=== PATIENT | female | born 1970 | race Caucasian/White ===

== ENCOUNTER 2022-11-06 11:48 | Inpatient (IN) | payer BC ==
--- OUTSIDE RECORDS SUMMARY | 2022-11-06 11:53 | XMS REPORT | Continuity of Care Document ---
:1970 Author Organization [facility] t Address [address] [place] [address] Care Team Providers Name Role Phone Janet Amaral Primary Care Physician LINDA LARA Attending Clinician Unavailable POLO AZEVEDO Attending Clinician Unavailable Polo Louis Attending Clinician Unknown, Attending Attending Clinician Unavailable Lisa Comer PA-C Attending Clinician LISA COMER Attending Clinician Unavailable Doctor Unassigned, [place] Attending Clinician Unavailable ALESSANDRO RUSS Attending Clinician Unavailable Alessandro Russ MD Attending Clinician RADIOLOGY Attending Clinician Unavailable Radiology Attending Clinician Unavailable TYRONE SALTER Attending Clinician Unavailable Tyrone Jarrett Attending Clinician Elsy Irvin RN Attending Clinician Unavailable UNKNOWN, ATTENDING Attending Clinician Unavailable Only, Ang Db Test Attending Clinician Unavailable CEE OQUENDO Attending Clinician Unavailable Singer MELENDEZ, Cee Attending Clinician TRACY SCHWARTZ Attending Clinician Unavailable Ana Luisa GUZMAN, [place] Attending Clinician Tracy Schwartz MD Attending Clinician RADHA SKINNER Attending Clinician Unavailable Provider, [facility] Attending Clinician Unavailable Radha Skinner MD Attending Clinician Galdino GUZMAN, Manjula Hart Attending Clinician Lance GUZMAN, Ladan Attending Clinician LINDA LARA Admitting Clinician Unavailable ALESSANDRO RUSS Admitting Clinician Unavailable JANET AMARAL Admitting Clinician Unavailable CEE OQUENDO Admitting Clinician Unavailable TRACY SCHWARTZ Admitting Clinician Unavailable Payers Payer Name Policy Type Policy Number Effective Date Expiration Date S ource HIM BCBS BLUE [id number] 2021 ADVANTAGE HMO 00:00:00 [place] [id number] 2014 00:00:00 [facility] [id number] 2020 TOTAL VISION 00:00:00 Problems Condition Condition Condition Status Onset Resolution Last Treating Co mments Source Name Details Category Date Date Treatment Clinician Date No known No known Disease Unive rs active active ity of problems problems [facility] [place] Allergies, Adverse Reactions, Alerts Allergy Allergy Status Severity Reaction(s) Onset Inactive Treating Comm ents Source Name Type Date Date Clinician Cephalos Propensi Active Rash 0 Univer s porins ty to 3-16 ity of adverse 00:00: [place] reaction 00 Medical s Branch CEPHALOS Drug Active Rash Univers PORINS Class 3-16 ity of 00:00: [place] 00 Medical Branch Cephalos Propensi Active Rash 0 Univer s porins ty to 3-16 ity of adverse 00:00: [place] reaction 00 Medical s Branch Cephalos Propensi Active Rash 0 Univer s porins ty to 3-16 ity of adverse 00:00: [place] reaction Medical s [place] Social History Social Habit Start Date Stop Date Quantity Comments Source History of tobacco Cigarette Smoker [facility] Medical Branch Gender identity Universit y of [facility] [place] Sexual orientation Univer sity of [facility] [place] Alcohol intake 2022-11-04 2022-11-04 Current drinker Unive rsity of 00:00:00 00:00:00 of alcohol [facility] (finding) [place] History of Social 2022-11-04 2022-11-04 Univers ity of function 00:00:00 00:00:00 [facility] [place] Exposure to 2022-09-02 2022-09-12 Not sure [facility] SARS-CoV-2 (event) 00:00:00 19:57:00 [facility] [place] Tobacco use and 2021-02-27 2021-02-27 Smokeless Universit y of exposure 00:00:00 00:00:00 tobacco non-user [facility] dical [place] Sex Ass[birth year] At [birth year] Universit y of 00:00:00 00:00:00 [facility] [place] Smoking Status Start Date Stop Date Source Smokes tobacco daily 2021-02-27 00:00:00 [facility] ity [facility] Medications Ordered Filled Start Stop Current Ordering Indication Dosage Frequency Signature Comments Components Source Medication Medication Date Date Medication? Clinician (SIG) Name Name amoxicillin 2022- Yes [id number] 1{tbl} Take 1 Univers -clavulanat 11-04 [id number] tablet by ity of e 00:00: 04:59 mouth in [place] (AUGMENTIN) 00 :00 the Medical 875-125 mg morning Branch per tablet and 1 tablet in the evening. Do all this for 10 days. acetaminoph 2022- Yes [id number] 1{tbl} Take 1 U nivers en-codeine 11-04 tablet by ity of (TYLENOL-CO 00:00[place] 04:59 [place] DE[place] #3[place] 00 :00 every 6 Medical 300-30 mg (six) Branch tablet hours as needed for Pain (scale 7-10) for up to 5 days. Indication s: acute pain dexamethaso 2022- No [id number] 10mg Univers ne sod phos 5-20 05-20 ity of PF 02:00: 01:22 [place] injection 00 :00 Medical 10 mg Branch albuterol 2022- No [id number] 2.5mg U nivers (PROVENTIL) - 05-20 ity of 2.5 mg /3 02:00: 01:22 [place] mL (0.083 00 :00 Medical %) Branch nebulizer solution 2.5 mg albuterol 2022- No [id number] 2.5mg 2.5 mg, Univers (PROVENTIL) - 05-20 Inhalation i ty of 2.5 mg /3 02:00: 01:22 [place] (0.083 00 :00 dose, On Medica l %) [facility] Branch nebulizer 09/12/22 at solution 2100, 2.5 mg Routine dexamethaso 2022- No [id number] 10mg 10 mg, Univers ne sod phos -13 09-20 Intramuscu i ty of PF 02:00: 01:22 lar, ONCE, [place] injection 00 :00 1 dose, On Medi esme 10 mg Fri Branch 09/12/22 at 2100, 1 mL LORazepam 2022-0 Yes .5mg Take 1 Univer s 0.5 mg 5-19 tablet by ity of tablet 20:02: mouth 2 [place] [address] (two) Medical times Branch daily as needed. Fenofibrate 2022-0 Yes Take by Uni vers 160 mg 5-19 mouth. ity of tablet 20:02: [address] Branch LORazepam 2022-0 Yes .5mg Take 1 Univer s 0.5 mg 5-19 tablet by ity of tablet 20:02: mouth 2 [place] [address] (two) Medical times Branch daily as needed. Fenofibrate 2022-0 Yes Take by Uni vers 160 mg 5-19 mouth. ity of tablet 20:02: [address] amoxicillin 3-0 Yes [id number] 1{tbl} Take 1 Univers -clavulanat 5-19 tablet by ity of e 00:00: mouth in [place] (AUGMENTIN) 00 [facility] Medical 875-125 mg morning Branch per tablet and 1 tablet in the evening. albuterol 2022-0 Yes [id number] 2{puff} Inhale 2 Univers 90 5-19 Puffs ity of mcg/actuati 00:00: every 4 [place] on inhaler 00 (four) Medical hours as Branch needed for Wheezing or Shortness of Breath. Guaifenesin 2023-0 Yes [id number] 1200mg Take 1 Univers 1,200 mg 5-19 tablet by ity of tablet 00:00: mouth in [place] 00 the Medical morning Branch and 1 tablet in the evening. amoxicillin 3-0 Yes [id number] 1{tbl} Take 1 Univers -clavulanat 5-19 tablet by ity of e 00:00: mouth in [place] (AUGMENTIN) 00 [facility] 875-125 mg morning Branch per tablet and 1 tablet in the evening. albuterol 3-0 Yes [id number] 2{puff} Inhale 2 Univers 90 5-19 Puffs ity of mcg/actuati 00:00: every 4 [place] on inhaler 00 (four) Medical hours as Branch needed for Wheezing or Shortness of Breath. Guaifenesin 3-0 Yes [id number] 1200mg Take 1 Univers 1,200 mg 5-19 tablet by ity of tablet 00:00: mouth in [place] 00 the Medical morning Branch and 1 tablet in the evening. pantoprazol 2022-0 Yes 40mg Take 40 mg Univers e 40 mg EC 4-08 by mouth ity o f tablet 08:45: daily. [address] LORazepam 2022-0 Yes .5mg Take 0.5 Univ ers 0.5 mg 4-08 mg by ity of tablet 08:45: mouth 2 [place] [address] (two) Medical times [place] daily as needed. Fenofibrate 2022-0 Yes Take by Uni vers 160 mg 4-08 mouth. ity of tablet 08:45: [address] pantoprazol 2022-0 Yes 40mg Take 40 mg Univers e 40 mg EC 4-08 by mouth ity o f tablet 08:45: daily. [address] LORazepam 2022-0 Yes .5mg Take 0.5 Univ ers 0.5 mg 4-08 mg by ity of tablet 08:45: mouth 2 [place] [address] (two) Medical times [place] daily as needed. Fenofibrate 2022-0 Yes Take by Uni vers 160 mg 4-08 mouth. ity of tablet 08:45: [address] pantoprazol 2022-0 Yes 40mg Take 40 mg Univers e 40 mg EC 4-08 by mouth ity o f tablet 08:45: daily. [address] LORazepam 2022-0 Yes .5mg Take 0.5 Univ ers 0.5 mg 4-08 mg by ity of tablet 08:45: mouth 2 [place] [address] (two) Medical times Branch daily as needed. Fenofibrate 2021-0 Yes Take by Uni vers 160 mg 4-08 mouth. ity of tablet 08:45: [address] pantoprazol 2-0 Yes 40mg Take 40 mg Univers e 40 mg EC 4-08 by mouth ity o f tablet 08:45: daily. [address] pantoprazol 2-0 Yes 40mg Take 40 mg Univers e 40 mg EC 4-08 by mouth ity o f tablet 08:45: daily. [address] metoprolol 2-0 Yes [id number] 25mg Take 1 Un renny tartrate 25 4-08 tablet by ity of mg tablet 00:00: mouth 2 [place] (two) Medical times Branch daily. metoprolol 2-0 Yes [id number] 25mg Take 1 Un renny tartrate 25 4-08 tablet by ity of mg tablet 00:00: mouth 2 [place] (two) Medical times Branch daily. metoprolol 2-0 Yes [id number] 25mg Take 1 Un renny tartrate 25 4-08 tablet by ity of mg tablet 00:00: mouth 2 [place] (two) Medical times Branch daily. metoprolol 2-0 Yes [id number] 25mg Take 1 Un renny tartrate 25 4-08 tablet by ity of mg tablet 00:00: mouth 2 [place] (two) Medical times Branch daily. metoprolol 2022-0 Yes [id number] 25mg Take 1 Un renny tartrate 25 4-08 tablet by ity of mg tablet 00:00: mouth 2 [place] (two) Medical times Branch daily. methocarbam 2-0 Yes [id number] 500mg Take 1 Univers oL 500 mg 2-01 tablet by ity o f tablet 00:00: mouth 4 [place] (four) Medical times Branch daily as needed for Pain (scale 4-6). naproxen 2022-0 Yes [id number] 500mg Take 1 Un renny (NAPROSYN) 2-01 tablet by ity of 500 mg 00:00: mouth 2 [place] tablet 00 (two) Medical times Branch daily with meals. methocarbam 2022-0 Yes [id number] 500mg Take 1 Univers oL 500 mg 2-01 tablet by ity o f tablet 00:00: mouth 4 (four) Medical times Branch daily as needed for Pain (scale 4-6). naproxen 2022-0 Yes [id number] 500mg Take 1 Un renny (NAPROSYN) 2-01 tablet by ity of 500 mg 00:00: mouth 2 [place] tablet 00 (two) Medical times Branch daily with meals. methocarbam 2022-0 Yes [id number] 500mg Take 1 Univers oL 500 mg 2-01 tablet by ity o f tablet 00:00: mouth 4 (four) Medical times Branch daily as needed for Pain (scale 4-6). naproxen 2022-0 Yes [id number] 500mg Take 1 Un renny (NAPROSYN) 2-01 tablet by ity of 500 mg 00:00: mouth 2 [place] tablet 00 (two) Medical times Branch daily with meals. methocarbam 2022-0 Yes [id number] 500mg Take 1 Univers oL 500 mg 2-01 tablet by ity o f tablet 00:00: mouth 4 (four) Medical times Branch daily as needed for Pain (scale 4-6). naproxen 2022-0 Yes [id number] 500mg Take 1 Un renny (NAPROSYN) 2-01 tablet by ity of 500 mg 00:00: mouth 2 [place] tablet 00 (two) Medical times Branch daily with meals. methocarbam 2022-0 Yes [id number] 500mg Take 1 Univers oL 500 mg 2-01 tablet by ity o f tablet 00:00: mouth (four) Medical times Branch daily as needed for Pain (scale 4-6). naproxen 2022-0 Yes [id number] 500mg Take 1 Un renny (NAPROSYN) 2-01 tablet by ity of 500 mg 00:00: mouth 2 [place] tablet 00 (two) Medical times Branch daily with meals. methocarbam 2022-0 Yes [id number] 500mg Take 1 Univers oL 500 mg 2-01 tablet by ity o f tablet 00:00: mouth 4 00 (four) Medical times Branch daily as needed for Pain (scale 4-6). naproxen 2022-0 Yes [id number] 500mg Take 1 Un renny (NAPROSYN) 2-01 tablet by ity of 500 mg 00:00: mouth 2 [place] tablet 00 (two) Medical times Branch daily with meals. chlorphenir 2020-04 Yes [id number] 4mg Take 1 Univers amine 4 mg 2-27 tablet by ity of tablet 00:00: mouth [place] 00 every 6 Medical (six) Branch hours as needed for Allergies or Runny nose. calcium/mag 2020-04 Yes [id number] 1{each} Take 1 Univers nesium/zinc 2-27 Each by ity o f (CALCIUM-MA 00:00: mouth [place] GNESUIUM-ZI 00 daily. Medica l NC) Branch 333-133-5 mg Tab benzonatate 2020-04 Yes [id number] 100mg Take 1 Univers 100 mg 2-27 capsule by ity of capsule 00:00: mouth 3 [place] 00 (three) Medical times Branch daily as needed for Cough. chlorphenir 2020-04 Yes [id number] 4mg Take 1 Univers amine 4 mg 2-27 tablet by ity of tablet 00:00: mouth [place] 00 every 6 Medical (six) Branch hours as needed for Allergies or Runny nose. calcium/mag 2020-04 Yes [id number] 1{each} Take 1 Univers nesium/zinc 2-27 Each by ity o f (CALCIUM-MA 00:00: mouth [place] GNESUIUM-ZI 00 daily. Medica l NC) Branch 333-133-5 mg Tab benzonatate 2020-04 Yes [id number] 100mg Take 1 Univers 100 mg 2-27 capsule by ity of capsule 00:00: mouth 3 [place] 00 (three) Medical times Branch daily as needed for Cough. chlorphenir 2020-04 Yes [id number] 4mg Take 1 Univers amine 4 mg 2-27 tablet by ity of tablet 00:00: mouth [place] 00 every 6 Medical (six) Branch hours as needed for Allergies or Runny nose. calcium/mag 2020-04 Yes [id number] 1{each} Take 1 Univers nesium/zinc 2-27 Each by ity o f (CALCIUM-MA 00:00: mouth [place] GNESUIUM-ZI 00 daily. Medica l NC) Branch 333-133-5 mg Tab benzonatate 2020-04 Yes [id number] 100mg Take 1 Univers 100 mg 2-27 capsule by ity of capsule 00:00: mouth 3 [place] (three) Medical times Branch daily as needed for Cough. chlorphenir 2020-04 Yes [id number] 4mg Take 1 Univers amine 4 mg 2-27 tablet by ity of tablet 00:00: mouth [place] 00 every 6 Medical (six) Branch hours as needed for Allergies or Runny nose. calcium/mag 2020-04 Yes [id number] 1{each} Take 1 Univers nesium/zinc 2-27 Each by ity o f (CALCIUM-MA 00:00: mouth [place] GNESUIUM-ZI 00 daily. Medica l NC) Branch 333-133-5 mg Tab benzonatate 2020-04 Yes [id number] 100mg Take 1 Univers 100 mg 2-27 capsule by ity of capsule 00:00: mouth 3 (three) Medical times Branch daily as needed for Cough. chlorphenir 2020-04 Yes [id number] 4mg Take 1 Univers amine 4 mg 2-27 tablet by ity of tablet 00:00: mouth [place] 00 every 6 Medical (six) Branch hours as needed for Allergies or Runny nose. calcium/mag 2020-04 Yes [id number] 1{each} Take 1 Univers nesium/zinc 2-27 Each by ity o f (CALCIUM-MA 00:00: mouth [place] GNESUIUM-ZI 00 daily. Medica l NC) Branch 333-133-5 mg Tab benzonatate 2020-04 Yes [id number] 100mg Take 1 Univers 100 mg 2-27 capsule by ity of capsule 00:00: mouth 3 (three) Medical times Branch daily as needed for Cough. chlorphenir 2020-04 Yes [id number] 4mg Take 1 Univers amine 4 mg 2-27 tablet by ity of tablet 00:00: mouth [place] 00 every 6 Medical (six) Branch hours as needed for Allergies or Runny nose. calcium/mag 2020-04 Yes [id number] 1{each} Take 1 Univers nesium/zinc 2-27 Each by ity o f (CALCIUM-MA 00:00: mouth [place] GNESUIUM-ZI 00 daily. Medica l NC) Branch 333-133-5 mg Tab benzonatate 2020-04 Yes [id number] 100mg Take 1 Univers 100 mg 2-27 capsule by ity of capsule 00:00: mouth 3 [place] 00 (three) Medical times Branch daily as needed for Cough. butalbital- 2020-04 Yes [id number] 1{tbl} Take 1 Univers acetaminoph 1-20 tablet by ity of en-caff 00:00: mouth [place] 50-325-40 00 every 4 Medical mg tablet (four) Branch hours as needed for Pain (scale 7-10). butalbital- 2020-04 Yes [id number] 1{tbl} Take 1 Univers acetaminoph 1-20 tablet by ity of en-caff 00:00: mouth [place] 50-325-40 00 every 4 Medical mg tablet (four) Branch hours as needed for Pain (scale 7-10). butalbital- 2020-04 Yes [id number] 1{tbl} Take 1 Univers acetaminoph 1-20 tablet by ity of en-caff 00:00: mouth [place] 50-325-40 00 every 4 Medical mg tablet (four) Branch hours as needed for Pain (scale 7-10). butalbital2020-04 Yes [id number] 1{tbl} Take 1 Univers acetaminoph 1-20 tablet by ity of en-caff 00:00: mouth [place] 50-325-40 00 every 4 Medical mg tablet (four) Branch hours as needed for Pain (scale 7-10). butalbital2020-04 Yes [id number] 1{tbl} Take 1 Univers acetaminoph 1-20 tablet by ity of en-caff 00:00: mouth [place] 50-325-40 00 every 4 Medical mg tablet (four) Branch hours as needed for Pain (scale 7-10). butalbital2020-04 Yes [id number] 1{tbl} Take 1 Univers acetaminoph 1-20 tablet by ity of en-caff 00:00: mouth [place] 50-325-40 00 every 4 Medical mg tablet (four) Branch hours as needed for Pain (scale 7-10). DULoxetine 2020-04 Yes TAKE ONE Uni vers 60 mg 0-26 (1) ity of capsule 00:00: CAP[place]LE [place] 00 MOUTH ONCE Medical DAILY. Branch DULoxetine 2020-04 Yes TAKE ONE Uni vers 60 mg 0-26 (1) ity of capsule 00:00: CAPSULE [place] 00 MOUTH ONCE Medical DAILY. Branch DULoxetine 2020-04 Yes TAKE ONE Uni vers 60 mg 0-26 (1) ity of capsule 00:00: CAPSULE [place] 00 MOUTH ONCE Medical DAILY. Branch DULoxetine 2020-04 Yes TAKE ONE Uni vers 60 mg 0-26 (1) ity of capsule 00:00: CAPSULE BY [place] 00 MOUTH ONCE Medical DAILY. Branch DULoxetine 2020-04 Yes TAKE ONE Uni vers 60 mg 0-26 (1) ity of capsule 00:00: CAPSULE BY [place] 00 MOUTH ONCE Medical DAILY. Branch DULoxetine 2020-04 Yes TAKE ONE Uni vers 60 mg 0-26 (1) ity of capsule 00:00: CAPSULE [place] 00 MOUTH ONCE Medical DAILY. Branch albuterol Yes [id number] 2{puff} Inhale 2 Univers 90 9-04 Puffs ity of mcg/actuati 00:00: every 4 [place] on inhaler 00 (four) Medical hours as Branch needed for Wheezing or Shortness of Breath. methylPREDN Yes [id number] Take by Univers ISolone 9-04 mouth ity of (MEDROL, 00:00: SEE-INSTRU [place] as OLYA,) 4 mg 00 CTIONS. Medica l tablets follow Branch package directions azithromyci Yes [id number] 250mg Take 1 Univers n 250 mg 9-04 tablet by ity of tablet 00:00: mouth [place] 00 daily. Medical Take 500 Branch mg day 1, then 250 mg days 2 to 5. albuterol Yes [id number] 2{puff} Inhale 2 Univers 90 9-04 Puffs ity of mcg/actuati 00:00: every 4 [place] on inhaler 00 (four) Medical hours as Branch needed for Wheezing or Shortness of Breath. methylPREDN Yes [id number] Take by Univers ISolone 9-04 mouth ity of (MEDROL, 00:00: SEE-INSTRU [place] OLYA,) 4 mg 00 CTIONS. Medica l tablets follow Branch package directions azithromyci Yes [id number] 250mg Take 1 Univers n 250 mg 9-04 tablet by ity of tablet 00:00: mouth [place] 00 daily. Medical Take 500 Branch mg day 1, then 250 mg days 2 to 5. albuterol 2020-0 Yes [id number] 2{puff} Inhale 2 Univers 90 9-04 Puffs ity of mcg/actuati 00:00: every 4 [place] on inhaler 00 (four) Medical hours as Branch needed for Wheezing or Shortness of Breath. methylPREDN 2020-0 Yes [id number] Take by Univers ISolone 9-04 mouth ity of (MEDROL, 00:00: SEE-INSTRU [place] as OLYA,) 4 mg 00 CTIONS. Medica l tablets follow Branch package directions azithromyci 2020-0 Yes [id number] 250mg Take 1 Univers n 250 mg 9-04 tablet by ity of tablet 00:00: mouth [place] 00 daily. Medical Take 500 Branch mg day 1, then 250 mg days 2 to 5. albuterol 2020-0 Yes [id number] 2{puff} Inhale 2 Univers 90 9-04 Puffs ity of mcg/actuati 00:00: every 4 [place] on inhaler 00 (four) Medical hours as Branch needed for Wheezing or Shortness of Breath. methylPREDN 2020-0 Yes [id number] Take by Univers ISolone 9-04 mouth ity of (MEDROL, 00:00: SEE-INSTRU [place] as OLYA,) 4 mg 00 CTIONS. Medica l tablets follow Branch package directions azithromyci 2020-0 Yes [id number] 250mg Take 1 Univers n 250 mg 9-04 tablet by ity of tablet 00:00: mouth [place] 00 daily. Medical Take 500 Branch mg day 1, then 250 mg days 2 to 5. methylPREDN 2020-0 Yes [id number] Take by Univers ISolone 9-04 mouth ity of (MEDROL, 00:00: SEE-INSTRU [place] as OLYA,) 4 mg 00 CTIONS. Medica l tablets follow Branch package directions azithromyci 2020-0 Yes [id number] 250mg Take 1 Univers n 250 mg 9-04 tablet by ity of tablet 00:00: mouth [place] 00 daily. Medical Take 500 Branch mg day 1, then 250 mg days 2 to 5. methylPREDN 2020-0 Yes [id number] Take by Univers ISolone 9-04 mouth ity of (MEDROL, 00:00: SEE-INSTRU [place] OLYA,) 4 mg 00 CTIONS. Medica l tablets follow Branch package directions azithromyci Yes [id number] 250mg Take 1 Univers n 250 mg 9- tablet by ity of tablet 00:00: mouth daily. Medical Take 500 Branch mg day 1, then 250 mg days 2 to 5. albuterol 3- No [id number] 2{puff} Inhale 2 Univers 90 904 05-19 Puffs ity of mcg/actuati 00:00: 00:00 every 4 [place] inhaler 00 :00 (four) Medical hours as Branch needed for Wheezing or Shortness of Breath. levothyroxi Yes 112ug Take 112 U nivers ne 112 mcg 8-16 mcg by ity of tablet 00:00: mouth. [facility] Branch levothyroxi Yes 112ug Take 112 U nivers ne 112 mcg 8-16 mcg by ity of tablet 00:00: mouth. [facility] levothyroxi Yes 112ug Take 112 U nivers ne 112 mcg 8-16 mcg by ity of tablet 00:00: mouth. [facility] Branch levothyroxi Yes 112ug Take 112 U nivers ne 112 mcg 8-16 mcg by ity of tablet 00:00: mouth. [facility] levothyroxi Yes 112ug Take 112 U nivers ne 112 mcg 8-16 mcg by ity of tablet 00:00: mouth. [facility] levothyroxi Yes 112ug Take 112 U nivers ne 112 mcg 8-16 mcg by ity of tablet 00:00: mouth. [facility] Branch ibuprofen Yes [id number] 600mg Take 1 Univers 600 mg 3-16 [id number] tablet by ity of tablet 00:00: mouth every 8 Medical (eight) Branch hours as needed for Pain (scale 4-6). ibuprofen Yes [id number] 600mg Take 1 Univers 600 mg 3-16 [id number] tablet by ity of tablet 00:00: mouth every 8 Medical (eight) Branch hours as needed for Pain (scale 4-6). ibuprofen Yes [id number] 600mg Take 1 Univers 600 mg 3-16 [id number] tablet by ity of tablet 00:00: mouth [place] 00 every 8 Medical (eight) Branch hours as needed for Pain (scale 4-6). ibuprofen Yes [id number] 600mg Take 1 Univers 600 mg 3-16 [id number] tablet by ity of tablet 00:00: mouth [place] 00 every 8 Medical (eight) Branch hours as needed for Pain (scale 4-6). ibuprofen 0 Yes [id number] 600mg Take 1 Univers 600 mg 3-16 [id number] tablet by ity of tablet 00:00: mouth [place] 00 every 8 Medical (eight) Branch hours as needed for Pain (scale 4-6). ibuprofen 0 Yes [id number] 600mg Take 1 Univers 600 mg 3-16 [id number] tablet by ity of tablet 00:00: mouth [place] 00 every 8 Medical (eight) Branch hours as needed for Pain (scale 4-6). Immunizations Ordered Filled Immunization Date Status Comments [facility] e Immunization Name Name TDAP 2022-11-04 Completed [facility] 00:00:00 [facility] [place] Vital Signs Vital Name Observation Time Observation Value Comments Source Systolic blood 2022-11-04 21:54:00 143 mm[Hg] [facility] 2022-11-04 21:54:00 94 mm[Hg] Unive [facility] Heart rate 2022-11-04 21:53:00 97 /min [facility] Body temperature 2022-11-04 21:53:00 36.61 Sanam [facility] Respiratory rate 2022-11-04 21:53:00 16 /min [facility] Body weight 2022-11-04 21:53:[address] [facility] BMI 2022-11-04 21:53:00 33.30 kg/m2 [facility] Oxygen saturation in 2022-11-04 21:53:00 97 /min [facility] Arterial blood by [facility] Pulse oximetry [place] Systolic blood 2022-09-13 01:00:00 126 mm[Hg] Univer sity [facility] Diastolic blood 2022-09-13 01:00:00 76 mm[Hg] Unive rsity [facility] Heart rate 2022-09-13 01:00:00 110 /min [facility] [place] [facility] Body temperature 2022-09-13 01:00:00 36.33 [facility] [place] Respiratory rate 2022-09-13 01:00:00 16 /min Univ ersity of [place] [facility] Body height 2022-09-13 01:00:00 162.6 cm Universi ty of [place] [facility] [place] Body weight 2022-09-13 01:00:00 87.59 kg Universi ty [facility] [place] [facility] BMI 2022-09-13 01:00:00 33.15 kg/m2 Universi ty [facility] [place] [facility] Oxygen saturation in 2022-09-13 01:00:00 97 /min University of Arterial blood by [facility] Pulse oximetry Branch Systolic blood 2021-08-02 13:41:00 137 mm[Hg] Univer sity of [facility] Diastolic blood 2021-08-02 13:41:00 87 [facility]Hg[facility] 2021-08-02 13:41:00 92 /min [facility] [place] [facility] Body height 2021-08-02 13:41:00 162.6 cm [facility] [place] [facility] Body weight 2021-08-02 13:41:00 82.696 kg [facility] [place] [facility] BMI 2021-08-02 13:41:00 31.29 kg/m2 [facility] [place] [facility] Oxygen saturation in 2021-08-02 13:41:00 96 /min University of Arterial blood by [facility] Pulse oximetry Branch Procedures Procedure Date / Time Performed Performing Clinician Sour e TDAP VACCINE, >11 YRS, 2022-11-04 22:09:[address] [facility] ASSIGNMENT OF BENEFITS 2022-09-13 00:57:13 Doctor Unassigned, No [facility] Name [facility] EXTERNAL PROVIDER 2021-07-23 05:01:00 Doctor Unassigned, No [facility] RECORDS [facility] Medical [place] Encounters Start End Encounter Admission Attending Care Care Encounter Source Date/Time Date/Time Type Type Clinicians Facility Department ID 2021-12-05 Outpatient R FLOR [facility] [id number] [facility] 13:52:05 LINDA Armendariz [facility] 2022-11-04 2022-11-04 Outpatient R JOLLY [facility] [id number] Univers 17:00:00 17:10:48 CECILIORanjeetTomy virgen [facility] 2022-11-04 2022-11-04 Urgent Polo Azevedo [facility] 1.2.840.11 [id number] Univers 17:00:00 17:10:48 Care Unknown, Attending HEALTH [id number] ity of [place] [id number] Fransico as DAVID?BLEA [phone] [address] MEDICAL OFFICE [facility] 2022-09-12 2022-09-12 Urgent Lisa Comer [facility] [id number] Univers 20:00:00 20:20:00 Care Unknown, Attending [facility] [id number] ity of [place] [id number] Fransico as DAVID?BLEA [id number] [address] MEDICAL OFFICE [facility] 2022-09-12 2022-09-12 [facility] [id number] Univers 20:00:00 20:00:00 LISACANDIDO virgen [facility] 2022-09-12 2022-09-12 Orders Doctor MICHELLE [id number] Univers 00:00:00 00:00:00 Only Unassigned, MARTIN [id number] [facility] [id number] [place]ans[place] as [phone] [address] 2021-12-17 2021-12-17 Outpatient R FLOR [facility] [id number] Univers 08:00:00 08:00:00 LINDA Armendariz [facility] 2021-09-03 2021-09-03 Outpatient R JEB [facility] [id number] Univers 08:00:00 08:00:00 ALESSANDRO hart [facility] 2021-09-02 2021-09-02 Outpatient R JEB [facility] [id number] Univers 10:20:00 10:20:00 QIANGJUN ity o [facility] 2021-09-02 2021-09-02 Outpatient R JEB, [facility] [id number] Univers 10:20:00 10:20:00 ALESSANDRO kasper [facility] 2021-08-15 2021-08-15 Telephone Jeb, [facility] [id number] Univers 00:00:00 00:00:00 Alessandro TURNER [id number] ity [facility] [id number] [phone] [address] 2021-08-13 2021-08-13 Outpatient R JEB, [facility] [id number] Univers 15:00:00 23:59:00 ALESSANDRO kasper [facility] 2021-08-12 2021-08-12 Outpatient R JEB, [facility] [id number] Univers 00:00:00 00:00:00 ALESSANDRO kasper [facility] 2021-08-02 2021-08-02 Outpatient R JEB, [facility] [id number] Univers 08:40:00 09:23:00 ALESSANDRO kasper [facility] 2021-08-02 2021-08-02 [facility] [id number] Univers 08:40:00 09:23:00 Visit Alessandro TURNER [id number] ity [facility] [id number] [phone] Wi dicva NAL [address] [place] [address] 2021-08-02 2021-08-02 Outpatient R JEB, [facility] [id number] Univers 08:40:00 09:23:00 ALESSANDRO kasper [facility] 2021-08-01 2021-08-01 Outpatient R RADIOLOGY [facility] RAD [id number] Univers 11:00:18 23:59:00 ity [facility] 2021-08-01 2021-08-01 Outpatient R RADIOLOGY [facility] RAD [id number] Univers 11:00:18 23:59:00 ity [facility] 2021-08-01 2021-08-01 Hospital Radiology [facility] 1.2.840.114 [id number] Univers 11:00:00 23:59:00 Encounter [place] [id number] ity of [place] [id number] [facility] [phone] [facility] [address] 2021-07-23 2021-07-23 Orders Doctor MICHELLE 1.2.840.114 [id number] Univers 00:00:00 00:00:00 Only Unassigned, MARTIN [id number] ity of [place] [facility] 4.2.7.2.686 Fransico as [phone] [facility] 009 Branch 2021-05-28 2021-05-28 Emergency X JOIE [facility] ERT [id number] Univers 17:05:00 20:12:00 TYRONE ity [facility] 2021-05-28 2021-05-28 Emergency Joie [facility] [id number] Univers 17:05:00 20:12:00 Tyrone S [place] [id number] i ty of [place] 4.2.7.2.686 [facility] [id number] [facility] 084 Branch 2021-05-28 2021-05-28 Orders Doctor MICHELLE 1.2.840.114 [id number] Univers 00:00:00 00:00:00 Only Unassigned, MARTIN [id number] ity of [place] [facility]OSPITAL 4.2.7.2.686 Fransico as [id number] [facility] 009 [place] 2021-05-01 2021-05-01 Telephone Elsy Irvin 1.2.840.114 [id number] Univers 00:00:00 00:00:00 MARTIN [id number] it y of HOSPITAL 4.2.7.2.686 [place] as [phone] [facility] 019 Branch 2021-04-30 2021-04-30 Outpatient R UNKNOWN, [facility] [id number] Univers 09:15:00 09:39:56 ATTENDING ity [facility] 2021-04-30 2021-04-30 Laboratory Only, Ang Db Test [facility] 1.2.8 [id number] Univers 09:15:00 09:30:00 Only Unknown, Attending HEALTH [id number] ity of [place] 4.2.7.2.686 [place]ans[place] as DAVID?BLEA [phone] [address] MEDICAL OFFICE BUILDING 2021-04-22 2021-04-22 Emergency X SINGER [facility] ERT [id number] Univers 12:51:00 15:37:00 CEE virgen [facility] 2021-04-22 2021-04-22 Emergency [facility] [id number] Univers 12:51:00 15:37:00 Cee SAENZVITO 350.1.13.10 i ty [facility] 4.2.7.2.686 [facility] [phone] [address] 2021-03-15 2021-03-16 Emergency X EFREN [facility] ERT [id number] Univers 21:11:00 02:13:00 TRACY virgen [facility] 2021-03-15 2021-03-16 Emergency Ana LuisaJuan C armendar[place] [facility] 1..840.11 [id number] Univers 21:11:00 02:13:00 Efren Tracy Vicki YUE 350.1.13.10 ity [facility] [id number] [facility] [id number] [address] 2021-02-27 2021-02-27 Outpatient Seth SKINNER [facility] [id number] Univers 18:40:00 18:39:28 RADHA virgen [facility] 2021-02-27 2021-02-27 Urgent Provider, [facility] 1.2.840.114 [id number] Univers 18:23:01 18:39:28 Radha Das [id number] ity of [place] [id number] [place]ans[place] as DAVID?BLEA [phone] [address] MEDICAL OFFICE [facility] 2020-12-29 2020-12-29 Emergency Galdino [facility] 1.2.840.114 [id number] Univers 10:05:00 14:10:00 Manjula Turner [id number] ity [facility] [id number] [facility] [phone] [place] 766464 Branch 2020-12-29 2020-12-29 Emergency X [facility] ERT [id number] Univers 09:56:00 09:56:00 ity [facility] 2020-07-10 2020-07-10 Emergency [facility] 1.2.840.114 [id number] Univers 12:55:00 16:00:00 Ladan Turner 350.1.13.10 i ty [facility] [id number] [facility] [phone] [place] 766464 Branch 2020-07-10 2020-07-10 Emergency X [facility] ERT [id number] Univers 12:43:00 12:43:00 [facility] This patient has no known results.
--- NOTE | 2022-11-06 13:05 | EDPHYS ---
Physician Documentation [facility] Name: Lauren Reddy Age: 52 yrs Sex: Female : 1970 Arrival Date: 11/06/2022 Time: 11:48 Bed 5 Private MD: Man Amaral E ED Physician Matheus Cooper HPI: 11/06 12:39 This 52 yrs old Female presents to ER via Ambulatory with complaints of Hand Swelling, snw Cat Bite - scratch. 12:39 The patient or guardian reports a bite, cat. The complaints affect the left dorsal snw hand. Context: The problem was sustained at home, resulted from cat bite. Onset: The symptoms/episode began/occurred suddenly, 80 hour(s) ago, and became worse. Associated signs and symptoms: Pertinent positives: redness and edema over dorsal left hand. The patient has not experienced similar symptoms in the past. The patient has been recently seen by a physician: The patient has been recently seen at an urgent care, for similar complaints, was given a prescription for antibiotics. Historical: - Allergies: 12:06 CEPHALOSPORINS; ll1 - PMHx: 12:06 Hypothyroidism; GERD; ll1 - PSHx: 12:06 None; ll1 - Immunization history:: Client reports receiving the 2nd dose of the Covid vaccine. - Social history:: Smoking status: Patient reports the use of cigarette tobacco products, denies chronic smoking, but will smoke occasionally. ROS: 12:38 Constitutional: Negative for fever, chills, and weight loss, Eyes: Negative for injury, snw pain, redness, and discharge, ENT: Negative for injury, pain, and discharge, Neck: Negative for injury, pain, and swelling, Cardiovascular: Negative for chest pain, palpitations, and edema, Respiratory: Negative for shortness of breath, cough, wheezing, and pleuritic chest pain, Abdomen/GI: Negative for abdominal pain, nausea, vomiting, diarrhea, and constipation, Back: Negative for injury and pain, : Negative for injury, bleeding, discharge, and swelling, MS/Extremity: Negative for injury and deformity, Neuro: Negative for headache, weakness, numbness, tingling, and seizure, Psych: Negative for depression, anxiety, suicide ideation, homicidal ideation, and hallucinations. 12:38 Skin: Positive for cat bite. Exam: 12:38 Constitutional: This is a well developed, well nourished patient who is awake, alert, snw and in no acute distress. Head/Face: Normocephalic, atraumatic. Eyes: Pupils equal round and reactive to light, extra-ocular motions intact. Lids and lashes normal. Conjunctiva and sclera are non-icteric and not injected. Cornea within normal limits. Periorbital areas with no swelling, redness, or edema. ENT: Nares patent. No nasal discharge, no septal abnormalities noted. Tympanic membranes are normal and external auditory canals are clear. Oropharynx with no redness, swelling, or masses, exudates, or evidence of obstruction, uvula midline. Mucous membranes moist. Neck: Trachea midline, no thyromegaly or masses palpated, and no cervical lymphadenopathy. Supple, full range of motion without nuchal rigidity, or vertebral point tenderness. No Meningismus. Chest/axilla: Normal chest wall appearance and motion. Nontender with no deformity. No lesions are appreciated. Cardiovascular: Regular rate and rhythm with a normal S1 and S2. No gallops, murmurs, or rubs. Normal PMI, no JVD. No pulse deficits. Respiratory: Lungs have equal breath sounds bilaterally, clear to auscultation and percussion. No rales, rhonchi or wheezes noted. No increased work of breathing, no retractions or nasal flaring. Abdomen/GI: Soft, non-tender, with normal bowel sounds. No distension or tympany. No guarding or rebound. No evidence of tenderness throughout. Back: No spinal tenderness. No costovertebral tenderness. Full range of motion. MS/ Extremity: Pulses equal, no cyanosis. Neurovascular intact. Full, normal range of motion. Neuro: Awake and alert, GCS 15, oriented to person, place, time, and situation. Cranial nerves II-XII grossly intact. Motor strength 5/5 in all extremities. Sensory grossly intact. Cerebellar exam normal. Normal gait. Psych: Awake, alert, with orientation to person, place and time. Behavior, mood, and affect are within normal limits. 12:38 Skin: Appearance: normal except for affected area, injury, bite(s), puncture, vaccinated personal cat bite. Vital Signs: 12:04 BP 141 / 106; Pulse 79; Resp 16; Temp 98.4(O); Pulse Ox 100% on R/A; Weight 89.36 kg; ll1 Height 5 ft. 4 in. ; Pain 10/10; 13:08 BP 139 / 85; Pulse 82; Resp 18; Pulse Ox 97% on R/A; ph 12:04 Body Mass Index 33.81 (89.36 kg, 162.56 cm) ll1 12:04 Pain Scale: Adult ll1 MDM: 12:12 Patient medically screened. snw 12:44 Differential diagnosis: cellulitis. Data reviewed: vital signs, nurses notes, snw radiologic studies, plain films. Management of patient was discussed with the following: Strategic Marketing Leader: Dr. Leo. Spoke with Dr. Leo, he will take to OR today. . Counseling: I had a detailed discussion with the patient and/or guardian regarding: the historical points, exam findings, and any diagnostic results supporting the discharge/admit diagnosis, the need for further work-up and treatment in the hospital. Response to treatment: There is no appreciated change of the patient's symptoms at this time. 13:03 Management of patient was discussed with the following: Hospitalist: Dr. Bone. sn11/06 12:21 Order name: CBC with Diff; Complete Time: 13:24 11/06 12:21 Order name: Chem 7; Complete Time: 13:24 sn11/06 12:21 Order name: Procalcitonin; Complete Time: 13:54 11/06 12:21 Order name: CPK; Complete Time: 13:24 sn11/06 13:05 Order name: PREGU 11/06 12:21 Order name: Hand Left 3 View XRAY; Complete Time: 13:17 11/06 13:05 Order name: Chest Single View XRAY; Complete Time: 13:15 snw 11/06 12:51 Order name: EKG; Complete Time: 12:52 sn11/06 12:21 Order name: Misc. Order: ice to left index finger for ring removal assist; Complete snw Time: 13:23 11/06 12:51 Order name: NPO; Complete Time: 13:22 snw 11/06 12:51 Order name: EKG - Nurse/Tech; Complete Time: 13:22 snw EC:10 Rate is 71 beats/min. Rhythm is regular. Right axis deviation noted. QT interval is snw prolonged. Clinical impression: NSR w/ Non-specific ST/T Changes. Administered Medications: 13:15 Drug: NS 0.9% IV 1000 ml Route: IV; Rate: 125 ml/hr; Site: right antecubital; iw 14:30 Follow up: IV Status: Infusion continued upon admission ph 13:15 Drug: Ampicillin-Sulbactam Sodium IVPB 1.5 grams Route: IVPB; Infused Over: 30 mins; iw Site: right antecubital; 13:45 Follow up: Response: No adverse reaction; IV Status: Completed infusion ph Disposition: 20:31 Co-signature as Attending Physician, Matheus Cooper MD I reviewed the patient's care rt provided by the Advanced Practice Provider and agree with the diagnosis and treatment plan. Disposition Summary: 11/06/22 13:05 Hospitalization Ordered Hospitalization Status: Observation snw Provider: Job Bone snw Location: Telemetry/MedSurg (observation) snw Condition: Stable snw Problem: new snw Symptoms: have worsened snw Bed/Room Type: Standard snw Room Assignment: snw Diagnosis - Bitten by cat snw - Puncture wound without foreign body of left hand snw - Cellulitis, unspecified - failed outpatient therapy snw Forms: - Medication Reconciliation Form snw - SBAR form snw Signatures: Dispatcher [employer] Hanane Pagan FNP-C CENTRIFUGAL SEPARATOR-Csnw Mechelle Guillaume RN RN iw Matt Sharp RN RN ll1 Matheus Cooper MD MD rt Lin Anderson RN ph Corrections: (The following items were deleted from the chart) 12:48 12:44 Management of patient was discussed with the following: Strategic Marketing Leader: Dr. juan r Leo. snw
--- NOTE | 2022-11-06 13:05 | ER ---
Nurse's Notes [facility] Name: Lauren Reddy Age: 52 yrs Sex: Female : 1970 Arrival Date: 11/06/2022 Time: 11:48 Bed 5 Private MD: Man Amaral E Diagnosis: Bitten by cat;Puncture wound without foreign body of left hand;Cellulitis, unspecified-failed outpatient therapy Presentation: 11/06 12:04 Chief complaint: Patient states: Her cat bit her Thursday. [facility] to [facility] and started Augmentin Thursday night. L hand is painful, swollen, red, hit now. Coronavirus screen: Vaccine status: Patient reports receiving the 2nd dose of the covid vaccine. Client denies travel out of the [place] in the last 14 days. At this time, the client does not indicate any symptoms associated with coronavirus-19. Ebola Screen: Patient denies travel to an Ebola-affected area in the 21 days before illness onset. Initial Sepsis Screen: Does the patient meet any 2 criteria? No. Patient's initial sepsis screen is negative. Does the patient have a suspected source of infection? Yes: Skin breakdown/wound. Risk Assessment: Do you want to hurt yourself or someone else? Patient reports no desire to harm self or others. Onset of symptoms was November 04, 2022. 12:04 Method Of Arrival: [facility]ulatory [facility] 12:04 Acuity: CHEMO 3 ll1 Triage Assessment: 12:06 Bite description: bite sustained to left hand by a cat, animal information: Appearance: ll1 appeared well, vaccination(s) is current. General: Appears uncomfortable, Behavior is calm, cooperative, appropriate for age. Pain: Complains of pain in left hand Quality of pain is described as aching, throbbing. Derm: Reports cat bite L hand. Musculoskeletal: Circulation, motion, and sensation intact. Capillary refill < 3 seconds, Swelling present in left hand. Historical: - Allergies: 12:06 CEPHALOSPORINS; ll1 - PMHx: 12:06 Hypothyroidism; GERD; ll1 - PSHx: 12:06 None; ll1 - Immunization history:: Client reports receiving the 2nd dose of the Covid vaccine. - Social history:: Smoking status: Patient reports the use of cigarette tobacco products, denies chronic smoking, but will smoke occasionally. Screenin:36 [facility] ED Fall Risk Assessment (Adult) History of falling in the last 3 months, db including since admission No falls in past 3 months (0 pts) Confusion or Disorientation No (0 pts) Intoxicated or Sedated No (0 pts) Impaired Gait No (0 pts) Mobility Assist Device Used No (0 pt) Altered Elimination No (0 pt) Score/Fall Risk Level 0 - 2 = Low Risk Oriented to surroundings, Maintained a safe environment. Abuse screen: Denies threats or abuse. Denies injuries from another. Nutritional screening: No deficits noted. Tuberculosis screening: No symptoms or risk factors identified. Assessment: 12:45 Reassessment: Patient appears in no apparent distress at this time. Patient and/or db family updated on plan of care and expected duration. Pain level reassessed. Patient is alert, oriented x 3, equal unlabored respirations, skin warm/dry/pink. LEFT HAND SWELLING AND PAIN AFTER CAT SCRATCH . PT HAS BEEN WASHING DAILY WITH HYDROGEN PEROXIDE. PATIENT WITH RING ON INDEX FINGER. Vital Signs: 12:04 BP 141 / 106; Pulse 79; Resp 16; Temp 98.4(O); Pulse Ox 100% on R/A; Weight 89.36 kg; ll1 Height 5 ft. 4 in. ; Pain 10/10; 13:08 BP 139 / 85; Pulse 82; Resp 18; Pulse Ox 97% on R/A; ph 12:04 Body Mass Index 33.81 (89.36 kg, 162.56 cm) ll1 12:04 Pain Scale: Adult ll1 ED Course: 11:54 Patient arrived in ED. am2 11:55 Man Amaral MD is Private Physician. am2 11:56 Hanane Moreno FNP-C [facility]. snw 11:56 Matheus Cooper MD is Attending Physician. snw 12:06 Triage completed. ll1 12:07 Arm band placed on Patient placed in an exam room, on a stretcher. ll1 12:53 Tonja Vargas, WESTLEY is Primary Nurse. db 13:04 Job Bone MD is Hospitalizing Provider. snw 13:09 Chest Single View XRAY In Process Unspecified. EDMS 13:11 Hand Left 3 View XRAY In Process Unspecified. EDMS 13:23 RING CUT OFF OF LEFT INDEX FINGER. iw 13:38 Report received from WESTLEY Evangelista. mb9 14:29 Patient has correct armband on for positive identification. Placed in gown. Bed in low ph position. Call light in reach. Side rails up X 1. 14:30 Patient admitted, IV remains in place. ph Administered Medications: 13:15 Drug: NS 0.9% IV 1000 ml Route: IV; Rate: 125 ml/hr; Site: right antecubital; iw 14:30 Follow up: IV Status: Infusion continued upon admission ph 13:15 Drug: Ampicillin-Sulbactam Sodium IVPB 1.5 grams Route: IVPB; Infused Over: 30 mins; iw Site: right antecubital; 13:45 Follow up: Response: No adverse reaction; IV Status: Completed infusion ph Medication: 14:29 VIS not applicable for this client. ph Outcome: 13:05 Decision to Hospitalize by Provider. snw 14:29 Admitted to OR accompanied by nurse, family with patient, via wheelchair. ph 14:29 Condition: stable 14:31 Patient left the ED. ph Signatures: Dispatcher [employer] EDMS Hanane Moreno, PROBATION MANAGER-C PROBATION MANAGER-Csnw Mechelle Guillaume, WESTLEY CHRISTY Lin Anderson RN RN Chary Patel amMatt Guerra RN RN ll1 Tonja Vargas, Blank Ramsay RN RN RN mb9
[2022-11-06 13:12] LABS: Absolute Lymphocytes (CBC) 1.2 K/uL (0.7-4.9); Hematocrit 39.3 % (36.0-45.0); Lymphocytes % 19.7 % (15.3-44.8); MCV 95.3 fL (80-100); MPV 8.4 fL (7.6-11.3); RBC Red Blood Cell Count 4.12 M/uL (3.86-4.86)
[2022-11-06] MEDS ORDERED: NA CHLORIDE 0.9% 1,000 ML ONE (13:13)
[2022-11-06] MEDS ORDERED: NA CHLORIDE 0.9% 100 ML ONE (13:13)
[2022-11-06] MEDS ORDERED: AMPICILLIN/SULBACT 1.5GM VIAL ONE (13:13)
--- NOTE | 2022-11-06 13:14 | RAD REPORT ---
EXAM DESCRIPTION: RAD - Chest Single View - 11/06/2022 1:09 pm CLINICAL HISTORY: preop Chest pain. COMPARISON: No comparisons FINDINGS: Portable technique limits examination quality. The lungs are grossly clear. The heart is mildly enlarged in size. No displaced fractures. IMPRESSION: No acute intrathoracic process suspected.
--- NOTE | 2022-11-06 13:15 | RAD REPORT ---
EXAM DESCRIPTION: RAD - Hand Left 3 View - 11/06/2022 1:09 pm CLINICAL HISTORY: ANIMAL BITE COMPARISON: No comparisons FINDINGS: Significant soft tissue swelling along the medial aspect of the hand and wrist. No fractur e or radiopaque foreign body. No soft tissue gas or osteomyelitis.
[2022-11-06 13:23] LABS: Potassium 3.8 mEq/L (3.5-5.1)
[2022-11-06] MEDS ORDERED: ONDANSETRON 4 MG/2 ML VIAL IV PRN (14:40)
[2022-11-06] MEDS ORDERED: ACETAMINOPHEN 500 MG TAB PO PRN (14:40)
[2022-11-06] MEDS ORDERED: HYDROCODONE/APAP 7.5/325 MG TAB PO PRN (14:43)
[2022-11-06] MEDS ORDERED: FENTANYL CITR 100 MCG/2 ML ONE ×2 (14:47→16:37)
[2022-11-06] MEDS ORDERED: propofoL 200 MG/20 ML VIAL IV ONE (14:47)
[2022-11-06] MEDS ORDERED: MIDAZOLAM HCL 2 MG/2 ML INJ ONE (14:47)
[2022-11-06] MEDS ORDERED: ONDANSETRON 4 MG/2 ML VIAL ONE (14:48)
[2022-11-06] MEDS ORDERED: LIDOCAINE 2% MPF 5 ML VIAL ONE (14:48)
[2022-11-06] MEDS ORDERED: SILVER SULFADIAZINE 1% 25 GM TOP ONE (15:43)
[2022-11-06] MEDS ORDERED: dexAMETHasone 10 MG/ML VIAL ONE (15:50)
[2022-11-06] MEDS: HYDROMORPHONE HCL 2 MG/ML inj ONE ×4 (15:57→16:16)
[2022-11-06] MEDS ORDERED: PIPER TAZO 3.375 GM in NA CHLORIDE 0.9% 100 ML IV SCH (17:00)
[2022-11-06 17:40] VITALS: BMI 33.7
[2022-11-06] MEDS: NA CHLORIDE 0.9% 1,000 ML IV SCH (17:44)
[2022-11-06] MEDS ORDERED: NA CHLORIDE IV SCH (18:00)
[2022-11-06] MEDS ORDERED: PENICILLIN MU IV SCH (18:00)
[2022-11-06] MEDS: PENICILLIN MU IV SCH (18:10)
[2022-11-06] MEDS: NA CHLORIDE IV SCH (18:10)
--- NOTE | 2022-11-06 21:50 | P.HP ---
Certification for Inpatient Patient admitted to: Inpatient Patient will require the following post-hospital care: Home Health Services Practitioner: I am a practitioner with admitting privileges, knowledge of patient current condition, hospital course, and medical plan of care. Services: Services provided to patient in accordance with Admission requirements found in Title 42 Section 412.3 of the Code of Federal Regulations Patient History Date of Service: 11/06/22 Reason for admission: Cellulitis of the left hand. History of Present Illness: Patient is a 52-year-old female who came to the hospital with pain and swelling in the left hand. She apparently has suffered a cat bite a couple of days ago and the swelling has gotten worse. She has a significant amount of redness and edema over the left hand. Patient was given oral antibiotics. Patient clinical symptoms are worsening. Patient decided to come into the emergency room for further evaluation. In the emergency room patient was evaluated and labs were performed. Patient had significant cellulitis and what appears to be an abscess. Patient will be seen by hand surgery for further evaluation. Allergies Cephalosporins Adverse Reaction (Verified 11/06/22 14:40) Nausea/Vomiting Home Medications: Levothyroxine [Synthroid*] 0.075 mg PO DAILY 11/06/22 Pantoprazole [Protonix Tab*] 40 mg PO DAILY 11/06/22 - Past Medical/Surgical History -: hypothyroid -: Gastroesophageal reflux disease -: Tobacco abuse -: left hand d/t cat bite - Family History Father Family History: Reviewed- Non-Contributory - Social History Smoking Status: Current every day smoker Alcohol use: Yes CD- Drugs: No Caffeine use: Yes Place of Residence: Home Review of Systems 10-point ROS is otherwise unremarkable Physical Examination - Vital Signs Temperature: 97.7 F Blood Pressure: 152/87 Pulse: 73 Respirations: 12 Pulse Ox (%): 94 - Physical Exam General: Alert, In no apparent distress, Oriented x3 HEENT: Atraumatic, PERRLA, Mucous membr. moist/pink, EOMI, Sclerae nonicteric Neck: Supple, 2+ carotid pulse no bruit, No LAD, Without JVD or thyroid abnormality Respiratory: Clear to auscultation bilaterally, Normal air movement Cardiovascular: Regular rate/rhythm, Normal S1 S2 Gastrointestinal: Normal bowel sounds, No tenderness Musculoskeletal: No tenderness Integumentary: Tenderness/swelling, Erythema, Other (Patient with swelling of the left hand) Neurological: Normal gait, Normal speech, Normal strength at 5/5 x4 extr, Normal tone, Cranial nerves 3-12 intact, Normal affect, Abnormal sensation Lymphatics: No axilla or inguinal lymphadenopathy - Studies Laboratory Data (last 24 hrs) 11/06/22 12:56: Sodium 136, Potassium 3.8, BUN 13, Creatinine 1.12 H, Glucose 107 H 11/06/22 12:56: WBC 6.10, Hgb 12.6, Hct 39.3, Plt Count 337 Assessment & Plan - Problems (Diagnosis) (1) Cellulitis of hand, left Current Visit: Yes Status: Acute - Plan PLAN: 1. Continue with IV antibiotic 2. Continue with local wound care 3. Hand surgeon consultation 4. Gentle IV hydration 5. Monitor CBC 6. Strict blood sugar monitoring 7. Pain control 8. GI and DVT prophylaxis Discharge Plan: Home Plan to discharge in: Greater than 2 days - Advance Directives Does patient have a Living Will: No Does patient have a Durable POA for Healthcare: No - Code Status/Comfort Care Code Status Assessed: Yes Code Status: Full Code Critical Care: No Time Spent Managing PTS Care (In Minutes): 50
[2022-11-07] MEDS: PENICILLIN MU IV SCH ×5 (00:12→23:36)
[2022-11-07] MEDS: NA CHLORIDE IV SCH ×5 (00:12→23:36)
[2022-11-07] MEDS: MORPHINE 2 MG/ML SYR IV PRN (00:13)
--- NOTE | 2022-11-07 03:53 | OP ---
Surgeon: Torsten Leo MD Lean Manager: Operating staff. Preoperative Diagnosis: Cat bite to the left hand. Postoperative Diagnosis: Cat bite to the left hand. Procedure Performed: Debridement of skin and subcu tissue. Anesthesia: General. Procedure In Detail: After satisfactory induction of general anesthesia, left arm was elevated, tour niquet was inflated to 250 mmHg. Hand was placed on a Roto Lock table. Elliptical incision was made around the puncture wounds and extended proximally and distally. I dissected down to the tendon and sheath and the wound opened. There was a cloudy fluid. Cultures were taken. The wound was jet lav aged, irrigated with 3 L of dilute Betadine solution. Tourniquet released. Electrocautery was used for hemostasis. Wound packed with Silvadene cream and closed with gauze and Kerlix. The patient olivia erated the procedure well. ESTEBAN/MIQUEL Voice ID: [id number] Report ID: [id number]
[2022-11-07] MEDS: CODEINE 30MG/APAP 300MG TAB PO PRN ×2 (04:16→08:01)
[2022-11-07 04:49] LABS: Absolute Lymphocytes (CBC) 0.6 K/uL (0.7-4.9); Hematocrit 35.9 % (36.0-45.0); Lymphocytes % 6.4 % (15.3-44.8); MCV 96.7 fL (80-100); MPV 8.5 fL (7.6-11.3); RBC Red Blood Cell Count 3.71 M/uL (3.86-4.86)
[2022-11-07 05:05] LABS: Albumin 3.3 g/dL (3.4-5.0); Bilirubin Total 0.2 mg/dL (0.2-1.0); Protein, Total 6.6 g/dL (6.4-8.2)
--- NOTE | 2022-11-07 05:31 | HP ---
Date of Admission: 11/06/2022 History Of Present Illness: 52-year-old white female, who is right hand dominant, was bitten on her left hand 2 days ago. She went to the outpatient ER center, given antibiotics. She then progressed and came to the ER today, with swelling on the left hand dorsally. was given in the ER. S he has history of thyroid disease. she smokes about one pack a day. Allergies: NONE. Medications: Physical Examination: Vital Signs: 5 feet 4 inches, 197 pounds. Extremities: On examination, she has a laceration over t he dorsal hand third metacarpal and then surrounding erythema from her hand wrist and she h as pain pressure proximal to the laceration. Assessment: Infection of the hand. Plan: Incision and drainage. ASHA Voice ID: [id number]
[2022-11-07] MEDS: NA CHLORIDE 0.9% 1,000 ML IV SCH ×3 (08:01→23:35)
--- NOTE | 2022-11-07 09:56 | P.CNS ---
Date of Consult: 11/07/22 Reason for Consult: Hand Cellulitis Chief Complaint: Left hand edema, erythema and pain History of Present Illness: Patient is a 52 yo female with a history of hypothyroidism and GERD who presented to the ED with complaints of left hand swelling, redness and pain following a cat bite. She was prescribed Augmentin on 11/04 without improvement in symptoms, which led her to present to the ED. Patient was admitted for left hand cellulitis and underwent debridement on 11/06. Allergies Cephalosporins Adverse Reaction (Verified 11/06/22 14:40) Nausea/Vomiting Home medications list reviewed: Yes Home Medications: Levothyroxine [Synthroid*] 0.075 mg PO DAILY 11/06/22 Pantoprazole [Protonix Tab*] 40 mg PO DAILY 11/06/22 - Past Medical/Surgical History -: hypothyroid -: gerd -: smoker -: left hand d/t cat bite - Social History Smoking Status: Current some day smoker Smoking therapy provided: Yes Patient receptive to therapy: Yes Alcohol use: Yes CD- Drugs: No Caffeine use: Yes Place of Residence: Home Review of Systems 10-point ROS is otherwise unremarkable Integumentary: As per HPI Physical Examination Temp Pulse Resp BP Pulse Ox 97.4 F 64 14 136/77 99 11/07/22 08:00 11/07/22 08:00 11/07/22 08:00 11/07/22 08:00 11/07/22 08:00 General: Alert, In no apparent distress, Oriented x3 HEENT: Atraumatic, Normocephalic, PERRLA Neck: Supple, JVD not distended Respiratory: Clear to auscultation bilaterally, Normal air movement Cardiovascular: No edema, Normal pulses, Regular rate/rhythm Gastrointestinal: Normal bowel sounds, Soft and benign, Non-distended Musculoskeletal: No clubbing Integumentary: Other (s/p debridement 11/06 left hand dressing clean dry and intact) Neurological: Normal speech, Normal tone, Normal affect Laboratory Data - Reviewed Microbiology Data - Pending Imagings Data: - XR Left Hand 11/06: "FINDINGS: Significant soft tissue swelling along the medial aspect of the hand and wrist. No fracture or radiopaque foreign body. No soft tissue gas or osteomyelitis" Conclusions/Impression: Problem List Cellulitis of Left Hand, Cat Bite Hypothyroidism GERD * Allergies: Cephalosporins (rash) * Cellulitis Left Hand, Cat Bite - XR Left Hand 11/06: "FINDINGS: Significant soft tissue swelling along the medial aspect of the hand and wrist. No fracture or radiopaque foreign body. No soft tissue gas or osteomyelitis" - s/p debridement on 11/06. Tolerated procedure well. - Wound culture 11/06: Pending - Currently on Penicillin G (started 11/06) - No leukocytosis. Afebrile. Recommendations - Cellulitis: Continue antibiotic therapy x 10 days (started 11/06). Currently on Penicillin G IV - continue for now. - Follow up with wound culture results and adjust antibiotic as appropriate. Transistion to PO antibiotic as tolerated. - Keep left hand/arm elevated - Wound care per Dr. Leo Case discussed with Ranjeet Childs. ID will follow up with patient as needed.
[2022-11-07] MEDS: HYDROCODONE/APAP 10/325 TAB PO PRN ×2 (15:21→21:00)
[2022-11-07] MEDS: HYDROMORPHONE HCL 0.5 MG/0.5 ML INJ IV PRN ×2 (16:32→23:38)
[2022-11-08] MEDS: HYDROCODONE/APAP 10/325 TAB PO PRN ×2 (02:45→20:39)
[2022-11-08] MEDS: PENICILLIN MU IV SCH ×3 (05:00→18:00)
[2022-11-08] MEDS: HYDROMORPHONE HCL 0.5 MG/0.5 ML INJ IV PRN ×3 (05:00→18:00)
[2022-11-08] MEDS: NA CHLORIDE IV SCH ×3 (05:00→18:00)
[2022-11-08] MEDS: NA CHLORIDE 0.9% 1,000 ML IV SCH ×2 (07:00→20:20)
--- NOTE | 2022-11-08 08:52 | RAD REPORT ---
EXAM DESCRIPTION: US - UPPER EXTREMITY VENOUS UNILATE - 11/08/2022 6:17 am CLINICAL HISTORY: L upper arm swelling, assess for DVT Animal bite, swelling COMPARISON: No comparisons FINDINGS: Left upper extremity venous system was interrogated with Doppler technique. Normal flow, c ompressibility and augmentation was noted. There is no DVT present. IMPRESSION: No evidence of left upper extremity deep venous thrombosis.
[2022-11-09] MEDS: NA CHLORIDE IV SCH ×4 (00:04→16:42)
[2022-11-09] MEDS: PENICILLIN MU IV SCH ×4 (00:04→16:42)
[2022-11-09] MEDS: HYDROCODONE/APAP 10/325 TAB PO PRN ×3 (03:27→20:23)
[2022-11-09] MEDS: NA CHLORIDE 0.9% 1,000 ML IV SCH ×2 (05:32→21:27)
[2022-11-09] MEDS: HYDROMORPHONE HCL 0.5 MG/0.5 ML INJ IV PRN ×2 (05:34→16:43)
[2022-11-09 07:48] LABS: Absolute Lymphocytes (CBC) 1.4 K/uL (0.7-4.9); Hematocrit 36.5 % (36.0-45.0); Lymphocytes % 24.2 % (15.3-44.8); MCV 96.4 fL (80-100); MPV 8.3 fL (7.6-11.3); RBC Red Blood Cell Count 3.79 M/uL (3.86-4.86)
[2022-11-09 08:08] LABS: Albumin 3.2 g/dL (3.4-5.0); Bilirubin Total 0.2 mg/dL (0.2-1.0); Magnesium 2.5 mg/dL (1.6-2.4); Potassium 4.1 mEq/L (3.5-5.1); Protein, Total 6.5 g/dL (6.4-8.2)
--- NOTE | 2022-11-09 12:01 | P.PN ---
Date of Service: 11/07/22 Subjective Patient continues to improve. Patient clinical symptoms are improving. Status post I&D of the abscess Physical Examination - Vital Signs Reviewed - Physical Exam General: Alert, In no apparent distress, Oriented x3 Respiratory: Clear to auscultation bilaterally, Normal air movement Cardiovascular: Regular rate/rhythm, Normal S1 S2 Gastrointestinal: Normal bowel sounds, No tenderness Musculoskeletal: No tenderness Integumentary: Tenderness/swelling, Erythema, Other (Patient with swelling of the left hand) Neurological: No focal deficits Assessment & Plan - Problems (Diagnosis) (1) Cellulitis of hand, left Current Visit: Yes Status: Acute - Plan Continue with plan of care as mentioned below: 1. Continue with IV antibiotic 2. Continue with local wound care 3. Hand surgeon consultation appreciated 4. Heplock IV 5. Monitor CBC 6. Strict blood sugar monitoring 7. Pain control 8. GI and DVT prophylaxis
--- NOTE | 2022-11-09 12:02 | P.PN ---
Date of Service: 11/08/22 Subjective We will continue with antibiotic therapy. Closure of the hand wound on Thursday per hand surgery. Discharge afterwards. Physical Examination - Vital Signs Reviewed - Physical Exam General: Alert, In no apparent distress, Oriented x3 Respiratory: Clear to auscultation bilaterally, Normal air movement Cardiovascular: Regular rate/rhythm, Normal S1 S2 Gastrointestinal: Normal bowel sounds, No tenderness Musculoskeletal: No tenderness Integumentary: Tenderness/swelling, Erythema, dressing is clear dry and intact Neurological: No focal deficits Assessment & Plan - Problems (Diagnosis) (1) Cellulitis of hand, left Current Visit: Yes Status: Acute - Plan Continue with plan of care as mentioned below: 1. Continue with IV antibiotic 2. Continue with local wound care 3. Hand surgeon consultation appreciated 4. Heplock IV 5. Monitor CBC 6. Strict blood sugar monitoring 7. Pain control 8. GI and DVT prophylaxis
--- NOTE | 2022-11-09 12:05 | P.PN ---
Date of Service: 11/09/22 Subjective At this time, there are no new changes. Continue with plan of care as mentioned. Surgery Thursday for closure of wound per Dr. Leo Physical Examination - Vital Signs Reviewed - Physical Exam General: Alert, In no apparent distress, Oriented x3 Respiratory: Clear to auscultation bilaterally Cardiovascular: Regular rate/rhythm, Normal S1 S2 Gastrointestinal: Normal bowel sounds, No tenderness Integumentary: Tenderness/swelling, dressing is clear dry and intact Neurological: No focal deficits Assessment & Plan - Problems (Diagnosis) (1) Cellulitis of hand, left Current Visit: Yes Status: Acute - Plan Continue with plan of care as mentioned below: 1. Continue with IV antibiotic 2. Continue with local wound care 3. Hand surgeon consultation appreciated 4. Heplock IV 5. Monitor CBC 6. Strict blood sugar monitoring 7. Pain control 8. GI and DVT prophylaxis
[2022-11-10] MEDS: PENICILLIN MU IV SCH ×3 (01:33→13:52)
[2022-11-10] MEDS: NA CHLORIDE IV SCH ×3 (01:33→13:52)
[2022-11-10 07:57] LABS: C-Reactive Protein 9.13 mg/L (<3.00); Magnesium 2.3 mg/dL (1.6-2.4); Potassium 3.8 mEq/L (3.5-5.1)
--- NOTE | 2022-11-10 11:55 | EKG ---
Test Date: 2022-11-06 Test Time: 13:09:47 Cable Tv Installer: NADEEN MEASUREMENT RESULTS: Intervals: Rate: 71 LA: 160 QRSD: 88 QT: 428 QTc: 465 Colona: P: 50 LA: 160 QRS: 99 T: 15 INTERPRETIVE STATEMENTS: Normal sinus rhythm Rightward axis ST & T wave abnormality, consider inferior ischemia ST & T wave abnormality, consider anterior ischemia Prolonged QT Abnormal ECG No previous ECG available for comparison Electronically Signed On 11-10-22 11:48:26 CDT by Alex Melvin
[2022-11-10] MEDS: NA CHLORIDE 0.9% 1,000 ML IV SCH (12:20)
[2022-11-10] MEDS: MORPHINE 2 MG/ML SYR IV PRN (13:53)
[2022-11-10] MEDS: HYDROCODONE/APAP 10/325 TAB PO PRN (16:04)
--- NOTE | 2022-11-10 16:41 | P.PN ---
Subjective Date of Service: 11/10/22 Chief Complaint: Cellulitis of the left hand. No acute events overnight. She reports that her pain is well-controlled. She denies any concerns today. Plan for wound closure tomorrow with Dr. Leo. She denies any fevers, chills, chest pain, or shortness of breath. Review of Systems 10-point ROS is otherwise unremarkable Physical Examination - Vital Signs Temperature: 97.2 F Blood Pressure: 145/82 Pulse: 67 Respirations: 16 Pulse Ox (%): 97 - Physical Exam General: Alert, In no apparent distress, Oriented x3 HEENT: Atraumatic, Mucous membr. moist/pink, Sclerae nonicteric Neck: JVD not distended Respiratory: Clear to auscultation bilaterally, Normal air movement Cardiovascular: No edema, Regular rate/rhythm, Normal S1 S2, No gallops, No rubs , No murmurs Gastrointestinal: Normal bowel sounds, Soft and benign, Non-distended, No tenderness, No rebound, No guarding Musculoskeletal: Other (left hand covered in clean dressing) Integumentary: No rashes Neurological: Normal gait, Normal affect Assessment And Plan - Plan # Cat Bite Puncture Wound to Left Hand complicated by Cellulitis - Left hand x-ray = "significant soft tissue swelling along the medial aspect of the hand and wrist. No fracture or radiopaque foreign body. No soft tissue gas or osteomyelitis" - Left upper extremity Doppler = "no evidence of left upper extremity deep venous thrombosis." - Infectious Diseases consulted and spoke with [employer] Nadya - recommendations appreciated - Continue penicillin - Hand Surgery consulted - recommendations appreciated - S/P debridement of skin and subcutaneous tissue on 11/06/2022 - Plan for wound closure on 11/11/2022 - Continue wound care - PRN pain medicine Carlos Concepcion M.D.
[2022-11-10] MEDS: HYDROMORPHONE HCL 0.5 MG/0.5 ML INJ IV PRN (18:22)
[2022-11-10] MEDS: AMPICILLIN/SULBACT 3 GM in NA CHLORIDE 0.9% 100 ML IV SCH ×2 (18:22→23:55)
[2022-11-11] MEDS: AMPICILLIN/SULBACT 3 GM in NA CHLORIDE 0.9% 100 ML IV SCH ×2 (05:06→11:41)
[2022-11-11] MEDS: HYDROMORPHONE HCL 0.5 MG/0.5 ML INJ IV PRN (06:36)
[2022-11-11] MEDS: Ringers Lactate 1,000 ML IV ONE ×2 (08:32→08:33)
[2022-11-11] MEDS ORDERED: propofoL 200 MG/20 ML VIAL IV ONE (08:56)
[2022-11-11] MEDS ORDERED: MIDAZOLAM HCL 2 MG/2 ML INJ ONE (08:57)
[2022-11-11] MEDS ORDERED: FENTANYL CITR 100 MCG/2 ML ONE (08:57)
[2022-11-11] MEDS ORDERED: LIDOCAINE 2% MPF 5 ML VIAL ONE (08:57)
--- NOTE | 2022-11-11 08:57 | P.PN ---
Date of Service: 11/11/22 Chief Complaint: Left hand edema, erythema and pain Subjective: Underwent wound closure this morning, tolerated procedure well. No new or worsening complaints. Improving. Physical Examination Temp Pulse Resp BP Pulse Ox 97.2 F 78 18 151/99 H 99 11/11/22 08:00 11/11/22 08:00 11/11/22 08:00 11/11/22 08:00 11/11/22 08:00 General: Alert, In no apparent distress, Oriented x3 HEENT: Atraumatic, Normocephalic, PERRLA Neck: Supple, JVD not distended Respiratory: Clear to auscultation bilaterally, Normal air movement Cardiovascular: No edema, Normal pulses, Regular rate/rhythm Gastrointestinal: Normal bowel sounds, Soft and benign, Non-distended Musculoskeletal: No clubbing Integumentary: left hand dressing clean dry and intact Neurological: Normal speech, Normal tone, Normal affect Laboratory Data - Reviewed Microbiology Data - Pending Imagings Data: - XR Left Hand 11/06: "FINDINGS: Significant soft tissue swelling along the medial aspect of the hand and wrist. No fracture or radiopaque foreign body. No soft tissue gas or osteomyelitis" Medication List - Reviewed Assessment and Plan Problem List Cellulitis of Left Hand, Cat Bite Hypothyroidism GERD * Allergies: Cephalosporins (rash) * Cellulitis Left Hand, Cat Bite - XR Left Hand 11/06: "FINDINGS: Significant soft tissue swelling along the medial aspect of the hand and wrist. No fracture or radiopaque foreign body. No soft tissue gas or osteomyelitis" - s/p debridement on 11/06. - Wound culture 11/06: No growth to date - Previously on Penicillin G (11/06-11/10) - Currently on Ampicillin (started 11/10-) - No leukocytosis. Afebrile. - Wound closure today Recommendations - Cellulitis: Continue antibiotic therapy x 10 days (started 11/06). - Currently on Ampicillin --> Consider switching to Augmentin PO upon discharge - Keep left hand/arm elevated - Wound care per Dr. Leo Case discussed with Ranjeet Childs. ID will follow up with patient as needed.
[2022-11-11] MEDS ORDERED: ONDANSETRON 4 MG/2 ML VIAL ONE (08:59)
[2022-11-11] MEDS ORDERED: dexAMETHasone 10 MG/ML VIAL ONE (09:34)
[2022-11-11] MEDS ORDERED: KETOROLAC 30 MG/ML INJ ONE (09:36)
[2022-11-11] MEDS ORDERED: EPHEDRINE SULF 50 MG/ML VIAL ONE (09:44)
[2022-11-11 10:07] VITALS: O2SAT 100
--- NOTE | 2022-11-11 11:04 | P.DS ---
Admission Date: 11/06/22 Discharge Date: 11/11/22 Disposition: ROUTINE DISCHARGE Discharge Condition: GOOD Reason for Admission: Cellulitis of the left hand. Consultations: 1. Hand Surgery 2. Infectious Diseases Procedures: - 11/06/2022 - Debridement of Left Hand Skin and Subcutaneous Tissue - 11/11/2022 - Left Hand Incision & Drainage and Wound Closure Hospital Course: DIAGNOSES: # Cat Bite Puncture Wound to Left Hand complicated by Cellulitis # Hypothyroidism # Gastroesophageal Reflux Disease HOSPITAL COURSE: Ms. Lauren Reddy is a 52 year old female with a past medical history significant for hypothyroidism and gastroesophageal reflux disease who was admitted to the [facility] on 11/06/2022 for a cat bite to her left hand. She was admitted to the Medicine service. Upon further evaluation, her left hand x-ray revealed, "significant soft tissue swelling along the medial aspect of the hand and wrist. No fracture or radiopaque foreign body. No soft tissue gas or osteomyelitis." Her left upper extremity Doppler revealed, "no evidence of left upper extremity deep venous thrombosis." Hand Surgery was consulted and she was evaluated by Dr. Leo. On 11/06/2022, she underwent debridement of the left hand skin and subcutaneous tissue. She tolerated the procedure well. Her wound was managed with IV antibiotics and wound care. On 11/11/2022, she underwent incision and drainage of left hand with wound closure. She tolerated the procedure well and Dr. Leo has cleared her for discharge. In regards to the cellulitis, Infectious Diseases was consulted and she was evaluated by Dr. Syed. He has cleared her for discharge with an additional 10 days of amoxicillin-clavulanate. On 11/11/2022, she was seen on morning rounds and deemed medically stable for discharge. She was discharged with instructions to schedule follow-up appointments with her PCP (DANA Payton) and with Hand Surgery (Dr. Leo). She was provided prescriptions for amoxicillin-clavulanate and hydrocodone- acetaminophen. She was given the opportunity to ask questions and reported no further questions. Furthermore, all questions were answered to the best of my ability. Prior to the controlled-substance prescription, a PDMP review was conducted. Over the last two years, she has received 2 controlled-prescriptions from 2 providers to 1 pharmacy. Her opioid overdose risk score is 220. A copy of this discharge summary will be sent to the above providers to facilitate continuity of care. Today, I personally spent 25 minutes on her case, of which greater than 50% of the time was spent in patient education, counseling, and coordination of care as described above. - Physical Exam General: Alert, In no apparent distress, Oriented x3 HEENT: Atraumatic, Sclerae nonicteric Neck: JVD not distended Respiratory: Clear to auscultation bilaterally, Normal air movement Cardiovascular: No edema, Regular rate/rhythm, No murmurs Gastrointestinal: Normal bowel sounds, Soft, Non-distended, No tenderness Musculoskeletal: Other (left hand covered in clean dressing) Integumentary: No rashes Neurological: Normal speech, Normal affect Vital Signs/Physical Exam: Temp Pulse Resp BP Pulse Ox 97.3 F 66 17 116/85 99 11/11/22 10:20 11/11/22 10:20 11/11/22 10:20 11/11/22 10:20 11/11/22 08:00 Laboratory Data at Discharge: WBC 5.70 thou/uL (4.3-10.9) 11/09/22 07:30 Hgb 11.8 g/dL (12.0-15.0) L 11/09/22 07:30 Hct 36.5 % (36.0-45.0) 11/09/22 07:30 Plt Count 346 thou/uL (152-406) 11/09/22 07:30 Sodium 141 mEq/L (136-145) 11/10/22 06:32 Potassium 3.8 mEq/L (3.5-5.1) 11/10/22 06:32 BUN 17 mg/dL (7-18) 11/10/22 06:32 Creatinine 0.89 mg/dL (0.55-1.02) 11/10/22 06:32 Glucose 109 mg/dL (74-106) H 11/10/22 06:32 Magnesium 2.3 mg/dL (1.6-2.4) 11/10/22 06:32 Total Bilirubin 0.2 mg/dL (0.2-1.0) 11/09/22 07:30 AST 11 U/L (15-37) L 11/09/22 07:30 ALT 18 U/L (13-56) 11/09/22 07:30 Alkaline Phosphatase 66 U/L (45-117) 11/09/22 07:30 Home Medications: Levothyroxine [Synthroid*] 0.075 mg PO DAILY 11/06/22 Pantoprazole [Protonix Tab*] 40 mg PO DAILY 11/06/22 Amox/Clavulanate [Augmentin 875-125 Tab] 875 mg PO BID 10 Days #20 tab 11/11/22 Hydrocodone/Acetaminophen [Hydrocodon-Acetaminophen 5-325] 1 tab PO Q6H PRN 3 Days #12 tab 11/11/22 New Medications: Amox/Clavulanate [Augmentin 875-125 Tab] 875 mg PO BID 10 Days #20 tab Hydrocodone/Acetaminophen [Hydrocodon-Acetaminophen 5-325] 1 tab PO Q6H PRN 3 Days #12 tab PRN Reason: Pain Scale 5-7 (Moderate) Physician Discharge Instructions: 1. Please call and schedule a follow-up appointment with your PCP (DANA Payton) in 3-5 days - Your blood work showed a mild anemia. Please discuss further evaluation with your PCP, specifically a colonoscopy. 2. Please call and schedule a follow-up appointment with Hand Surgery (Dr. Leo) in 5-7 days - Please do not drive or operate heavy machinery while taking pain medications Diet: Regular Activity: Ad erika Followup: Teresa Payton NP [Primary Care Provider] - Torsten Leo MD [ACTIVE - CAN ADMIT] - Time spent managing pt's care (in minutes): 25
--- NOTE | 2022-11-11 11:08 | OP ---
Surgeon: Torsten Leo MD Preoperative Diagnosis: Open wound of the left hand. Postoperative Diagnosis: Open wound of the left hand. Procedure Performed: Debridement of skin and subcutaneous tissue, flap closure. Anesthesia: General. Procedure In Detail: After satisfactory induction of general anesthesia, the arm was prepped with Be tadine scrub and Betadine paint. Dry sterile drapes were applied in the usual manner. The arm was e levated, exsanguinated with an Esmarch. Tourniquet was inflated to 250 mmHg. Hand was placed on the roll lock table. The flaps were undermined and then wound curetted to the skin tissue as needed, je t lavaged, irrigated with 3 L Betadine solution, and then tourniquet released. Electrocautery was us ed for hemostasis. Flaps were undermined and advanced, closed with 4-0 Prolene in vertical mattresse s. Dressed with Xeroform, 2-inch Liane, and Kerlix. The patient tolerated the procedure well and re turned to recovery. ESTEBAN/MIQUEL Voice ID: [id number] Report ID: [id number]
[2022-11-11 12:08] VITALS: BP 152/79; TEMP 97
== END 2022-11-11 12:48 | disposition home or self-care (01) | DRG 574 ==
LOC: ER 11:48 → ERHOLD 14:40 → 4TH 16:10
PROVIDERS: ADMIT Hospitalist; ATTEND Internal Medicine
PROC: 0JBK0ZZ Excision of Left Hand Subcutaneous Tissue and Fascia, Open Approach (ICD-10-PCS; 2022-11-06)
PROC: 0JDK0ZZ Extraction of Left Hand Subcutaneous Tissue and Fascia, Open Approach (ICD-10-PCS; 2022-11-11)
PROC: 0HXGXZZ Transfer Left Hand Skin, External Approach (ICD-10-PCS; principal; 2022-11-11 09:00)
DX: L03.114 Cellulitis of left upper limb (principal); L02.512 Cutaneous abscess of left hand; S61.432A Puncture wound without foreign body of left hand, initial encounter; E03.9 Hypothyroidism, unspecified; D64.9 Anemia, unspecified; K21.9 Gastro-esophageal reflux disease without esophagitis; F17.210 Nicotine dependence, cigarettes, uncomplicated; Z88.1 Allergy status to other antibiotic agents; Z79.890 Hormone replacement therapy; Z79.899 Other long term (current) drug therapy; W55.01XA Bitten by cat, initial encounter
CPT/HCPCS: 36415; 71045; 80048; 80053; 82550; 83735; 84145; 85025; 86140; 87070; 87075; 87205; 93005; 93971; 96361; 96365; 99285; J0295; J1100; J1170; J2001; J2250; J2270; J2405; J2540; J2704; J3010; J7030; J7120